=== PATIENT | female | born 1970 | race Caucasian/White ===

== ENCOUNTER 2022-08-10 13:46 | Outpatient (CLI) | payer BC, SELFPAY ==
--- NOTE | ~2022-08-10 | US_ITS ---
US thyroid INDICATION: Hyperthyroidism TECHNIQUE: Real-time sonographic images of the thyroid gland were obtained. COMPARISON: No prior studies for comparison. FINDINGS: The right thyroid lobe measures 3.9 x 1.3 x 1.3 cm. The left thyroid lobe measures 4.6 x 1 .2 x 1.2 cm. There is mildly heterogeneous thyroid echotexture. In the right lobe there is an oval so lid hypoechoic 3 mm mass which is wider than tall, smoothly marginated without calcifications, TR 4, likely benign. In the left lobe there is a solid hypoechoic, wider than tall, smoothly marginated 5 m m mass without echogenic foci, TR 4, likely benign. IMPRESSION: 1. Small bilateral thyroid nodules, likely benign. Reviewed, dictated and finalized at location A.
== END 2022-08-10 13:47 | disposition home or self-care (01) ==
LOC: CHSIMG 13:50
PROVIDERS: PCP Internal Medicine; Visit Provider Internal Medicine
DX: E05.90 Thyrotoxicosis, unspecified without thyrotoxic crisis or storm (principal); E04.2 Nontoxic multinodular goiter
CPT/HCPCS: 76536

== ENCOUNTER → 2023-01-28 09:47 | Outpatient (CLI) | payer BC, SELFPAY ==
--- NOTE | ~2023-01-28 | CT_ITS ---
EXAMINATION: CT abdomen pelvis wo con DATE: 01/28/2023 10:05 INDICATION: Bladder stone TECHNIQUE: Computed tomography (CT) of the abdomen and pelvis was performed without intravenous contr ast. Automated exposure control and iterative reconstruction technique were employed. Exam dose: 186 .72 mGy-cm total exam DLP. COMPARISON: 01/28/2023 KUB FINDINGS: The lung bases are clear of infiltrate or consolidation. Normal heart size. No pericardial or pleural effusion. Approximately 3.3 x 4 cm cyst of the lateral segment of the left hepatic lobe. Liver otherwise appear s unremarkable. No bile duct or pancreatic duct dilatation. No pancreatic mass lesion or calcificatio n is detected. Normal splenic size. Normal morphology of the adrenal glands. Severely atrophic very small left kidney. No right renal mass lesion or right renal or ureteral calcu valentin is detected. There is a rounded 7.9 mm calculus of the urinary bladder with attenuation of 1593 Hounsfield units. The bladder is largely evacuated. Normal caliber of the abdominal aorta. No intraperitoneal or retroperitoneal or pelvic mass lesion or adenopathy or ascites. No bowel obstruction, bowel wall thickening, pneumatosis or intraperitoneal free air. Included skeletal structures are unremarkable. IMPRESSION: Similar 9 mm urinary bladder calculus 3.3 x 4 cm lateral segment left hepatic cyst Reviewed, dictated and finalized at [facility]. Reviewed, dictated and finalized at location B.
--- NOTE | ~2023-01-28 | XR_ITS ---
Supine and upright views of the abdomen Clinical history: Bladder stone Findings: Bowel gas pattern is nonspecific. No evidence for obstruction or free air. 8 mm calcificati on in the pelvis is consistent with bladder stone. Osseous structures are intact. Impression: 8 mm urinary bladder stone. Reviewed, dictated and finalized at [facility]. Impression: 8 mm urinary bladder stone.
== END ==
PROVIDERS: Visit Provider Nurse Practitioner Family
DX: N21.0 Calculus in bladder (principal); K76.89 Other specified diseases of liver
CPT/HCPCS: 74018; 74176

== ENCOUNTER 2023-03-10 00:24 | Day surgery (SDC) | payer BC, SELFPAY ==
[2023-03-04 10:00] VITALS: BMI 19.3
--- NOTE | 2023-03-04 10:25 | PC.NURSE ---
Report to the Outpatient Waiting Room, entrance under the green pavilion located off [facility], at 0830 on 03-10-23. Planned Procedure Time: 1030. Time changes happen often and if your time is changed the preop area will call you the afternoon before. - You and your visitor will be asked to self-screen and do not enter if you have any COVID symptoms. - A mask is optional within the hospital at this time. Patients may have clear liquids (water, carbonated beverages, clear teas, apple juice) until 3 hours prior to surgery with a maximum of 20 ounces. 0730 - No food from midnight until time of surgery - Infants may have breast milk until 4 hours before surgery, formula 6 hours prior to surgery. - Children will be allowed to drink immediately following surgery. If applicable, please bring a bottle or sippy cup to assist with drinking. Juice, water, soda, and popsicles are readily available. For infants on formula, please bring formula the day of surgery. Pacifiers are allowed. Take the following medications with a SIP of water the morning of surgery: control DO NOT STOP ANY OF YOUR OTHER PRESCRIPTION MEDICATIONS PRIOR TO SURGERY ?EXCEPT THE FOLLOWING Medications to discontinue per physician: vitamins and supplements Date to take last dose: 03-07-23 Please no make-up, nail sinhala, hairspray, perfume, deodorant, or body powder the day of surgery. No jewelry (including any body piercings) or valuables the day of surgery, leave them at home. Please take a shower or bath the night before, or the morning of, surgery with an antibacterial soap. Wear comfortable, loose fitting clothing. Children are encouraged to wear pajamas. - Jewelry must be removed prior to entering the operating room. Rings and piercings that are not removed may be cut off. - The hospital will not accept responsibility for valuables. - Please leave all valuables, including medications, at home the day of surgery. If you are going home after surgery, a licensed power truck driver must drive you home. - NO public transportation without another adult if you receive anesthesia. - We recommend that an adult stay with you for 24 hours following discharge. - We also recommend that you do not drive, make important decision, drink alcoholic beverages, or take any drugs that were not prescribed by your health care provider for at least 24 hours after your discharge time. For Pediatric surgeries, we recommend two adults accompany the child home. Follow any additional instructions given to you from your surgeon. If you or anyone in your household have experienced Covid symptoms in the past week, please notify your surgeon or the nurse liaison at the phone number below for possible testing. Telephone instructions given to Makenzie Espitia and asked if any additional questions and then verbalized understanding. Patient advised to call surgeon office or pre surgery nurse liaison [phone] if any additional questions.
--- NOTE | 2023-03-09 07:04 | P.HP_ITS ---
History of Present Illness History of Present Illness Consent: Risks, benefits, and alternatives have been discussed and questions answered. Patient agrees to proceed with procedure. Chief complaint: Bladder Stones Narrative: Makenzie Espitia is a 52 year old female referred by Dr. Gibson after a renal/ bladder ultrasound suggested a 1 cm bladder calculus. This was confirmed by CT abdomen and pelvis without contrast. After discussion of options he is agreeabl e to cystoscopy with laser lithotripsy and stone extraction.. We discussed the risks including, limited to, hematuria, bladder injury, need for additional procedures. She denies voiding symptoms, specifically denying dysuria or obstructed voiding pattern Review of Systems Review of Systems: All systems reviewed & are unremarkable except as noted in HPI and below PMFSH Social History Social History Years smoked: 3 Smoking status: Current some day smoker Tobacco type: cigarettes Second hand tobacco smoke exposure: No Alcohol intake: current Drinks per week: 21 Alcohol use details: beer drinks 3 a day Substance use: never Substance use type: does not use Living arrangements: with family Spiritual care concerns: No Meds Home Medications and Allergies Home Medications Medication Instructions Recorded Confirmed Type biotin 10,000 mcg chewable tablet 10,000 mcg PO DAILY 03/04/23 03/04/23 History (Hair, Skin and Nails (biotin)) l.norgest-eth.estradiol triphasic 1 tablet PO DAILY 03/04/23 03/04/23 History 50-30 (6)/75-40(5)/125-30(10) tablet (Enpresse) Allergies Allergy/AdvReac Type Severity Reaction Status Date / Time No Known Allergies Allergy Verified 03/04/23 09:56 Exam Const: General: no acute distress Resp: Effort & Inspection: normal respiratory effort GI: Inspection: non-distended GI Palp: No abdominal tenderness and No Guarding due to palpation present (GI) Auscultation: normal bowel sounds Assessment and Plan Assessment and plan (1) Bladder stone: Code(s): N21.0 - Calculus in bladder Status: Acute Assessment and Plan: * Cystoscopy, laser lithotripsy with bladder stone extraction
[2023-03-10] VITALS (8 sets, daily range): BP systolic 109–133; BP diastolic 60–100; PULSE 70–95; RESP 10–20; TEMP 36.5–36.9; O2SAT 99–100; BMI 19.5
--- NOTE | ~2023-03-10 | XR_ITS ---
EXAMINATION: XR fluoroscopy no charge DATE: 03/10/2023 11:03 INDICATION: Bladder stone. TECHNIQUE: A single intraoperative spot fluoroscopic view of the pelvis was obtained. I was not prese nt. Fluoroscopy exposure time was 3 seconds. COMPARISON: CT abdomen and pelvis 01/28/23 FINDINGS: There is a 9 mm stone in the bladder. IMPRESSION: 1. Bladder stone. Reviewed, dictated and finalized at location A. DIRECTOR RN IMPRESSION: 1. Bladder stone.
--- NOTE | 2023-03-10 06:19 | WPDHPUPDATE1 ---
History and Physical Update Update Date/Time: 03/10/23 06:19 History and Physical has been reviewed, including an updated exam of the patient. There are NO changes in the patient's condition. Risks, benefits, and alternatives have been discussed and questions answered. Patient agrees to proceed with procedure.
[2023-03-10] MEDS: LACTATED RINGERS 1,000 ML 30 ML IV CONT (09:15)
--- NOTE | 2023-03-10 09:31 | WPDANESEPPF ---
Anes - Initial Pre Proc Eval Procedure: Operation Date: 03/10/23 10:30 Proposed Procedures p Cystoscopy, Holmium Laser Lithotripsy with Bladder Stone Extraction - Garrick Painting MD Date/Time: 03/10/23 09:31 Surgeon: Garrick Painting MD Pre Op Diagnosis: Bladder Stones Patient Data Age: 52 Gender: F Height: 1.68 m Weight: 54.43 kg Allergies Allergy/AdvReac Type Severity Reaction Status Date / Time No Known Allergies Allergy Verified 03/04/23 09:56 Home Medications Medication Instructions Recorded Confirmed Type biotin 10,000 mcg chewable tablet 10,000 mcg PO DAILY 03/04/23 03/04/23 History (Hair, Skin and Nails (biotin)) l.norgest-eth.estradiol triphasic 1 tablet PO DAILY 03/04/23 03/04/23 History 50-30 (6)/75-40(5)/125-30(10) tablet (Enpresse) Patient hx anesthesia problems: none Family hx anesthesia problems: none Results Review: All pre-operative results and documents have been reviewed as part of the pre-operative evaluation. [facility] Past Medical History Medical History Bladder stone Smoker Surgical History Surgical History (Updated 03/10/23 @ 09:35 by Nash Mallory MD) H/O laparoscopy Social History Social History Years smoked: 3 Smoking status: Current some day smoker Tobacco type: cigarettes Second hand tobacco smoke exposure: No Alcohol intake: current Drinks per week: 21 Alcohol use details: beer drinks 3 a day Substance use: never Substance use type: does not use Living arrangements: with family Spiritual care concerns: No Anes - Eval Final PreProcedure Day of Procedure 03/10/23 09:31 Patient weight: thin Heart: regular rate and rhythm Lungs: clear to auscultation Airway: Mallampati scale class II Neurological: alert and oriented Last oral intake: >/= 8 hours ASA classification: II Emergent: no Anesthetic plan: proceed Anesthesia type and monitoring: general LMA and standard monitoring Results Review: All pre-operative results and documents have been reviewed as part of the pre-operative evaluation. Informed Consent: The patient's anesthetic plan and its attendant risks and benefits were discussed with the patient/family/POA. Questions were solicited and answers provided to the satisfaction of the patient/family/POA.
[2023-03-10] MEDS: ceFAZolin 2 GM/D5W 50 ML 2 GM/50 ML BAG IVPB (10:21)
[2023-03-10] MEDS: LIDOCAINE HCL 2% GEL UROJET 10 ML PKG MUCOUS MEM (10:35)
--- NOTE | 2023-03-10 11:02 | W.PM.PROC2 ---
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 CT imaging was highly suggestive of a 1 cm calculus in the dependent portion of the posterior bladder. She has an atrophic, almost completely absent left kidney. 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 Despite exhaustive attempts I was unable to find her left ureteral orifice. I considered incising her intramural ureter but thought that could run the risk of exposing her to problems with vesicoureteral reflux. Given her absence of symptoms and already atrophic kidney I opted not to intervene otherwise at this time. Bladder was emptied and the scope was removed. Patient was taken to recovery room in good condition. Complications No immediate complications
--- NOTE | 2023-03-10 11:25 | SUR.PHASEI ---
1125: Simple mask removed.
== END 2023-03-10 12:35 | disposition home or self-care (01) ==
PROVIDERS: Visit Provider Urology
PROC: (CPT 52352; principal; 2023-03-10 10:30)
DX: N21.0 Calculus in bladder (principal); N28.89 Other specified disorders of kidney and ureter; K76.89 Other specified diseases of liver; F17.210 Nicotine dependence, cigarettes, uncomplicated; E04.2 Nontoxic multinodular goiter
CPT/HCPCS: 52000; 99199; C1758; C1769; J0690; J1100; J2250; J2371; J2405; J2704; J3010; J7120

== ENCOUNTER 2023-10-05 07:27 | Outpatient (CLI) | payer BC, SELFPAY ==
--- NOTE | ~2023-10-05 | XR_ITS ---
XR abdomen/kub 1V 10/05/2023 07:48 INDICATION: History of kidney stones TECHNIQUE: KUB COMPARISON: 01/28/2023 FINDINGS: Bowel gas pattern is normal. Stable 8 mm bladder stone. There is no evidence of free air, m ass, organomegaly, ascites or obstruction. No abnormal renal calculi are seen. The bones appear int act. IMPRESSION: 1: Stable 8 mm bladder stone. Reviewed, dictated and finalized at location B.
== END 2023-10-05 07:28 | disposition home or self-care (01) ==
LOC: CHSIMG 07:30
PROVIDERS: PCP Internal Medicine; Visit Provider Urology
DX: N21.0 Calculus in bladder (principal)
CPT/HCPCS: 74018